=== PATIENT | female | born 1930 | race Caucasian/White ===

== ENCOUNTER 2017-05-26 15:10 | Inpatient (IN) ==
[2017-05-26 16:22] LABS: Basophils % 0.5 % (0.0-0.8); Eosinophils % 0.2 % (0.00-10.9); Hematocrit 26.8 VOL% (35.7-47.0); Hemoglobin 8.1 GM/DL (12.0-16.0); Immature Granulocytes % 0.4 %; Immature Granulocytes Absolute 0.03 #; Lymphocytes # 0.6 10*3/uL (1.4-4.0); Mean Corpuscular HGB Conc 30.2 GM/DL (32-36); Mean Corpuscular Hemoglobin 26 PG (27-34); Mean Corpuscular Volume 85.4 FL (87-102); Monocytes # 0.5 10*3/uL (0.11-0.8); Monocytes % 5.4 % (1.7-12.7); Neutrophils # 7.2 10*3/uL (1.4-7.4); Neutrophils % 86.5 % (38.7-73.9); Platelet Count 280 T/CUMM (130-400); Red Blood Count 3.14 MC/CUMM (3.8-5.5); Red Cell Distribution Width 13.5 % (9.3-17.3); White Blood Count 8.3 T/CUMM (4-12)
[2017-05-26 16:49] LABS: Alanine Aminotransferase 26 U/L (13-56); Albumin 3.3 G/DL (3.4-5.0); Alkaline Phosphatase 95 U/L (45-117); Aspartate Amino Transferase 38 U/L (0-37); Blood Urea Nitrogen 15 MG/DL (7-18); Calcium 8.4 MG/DL (8.5-10.1); Glucose 117 MG/DL (74-106); Osmolality,Calculated 276.7 MOS/KG (273-304); Potassium 3.4 MMOL/L (3.5-5.1); Sodium 138 MMOL/L (136-145); Total Protein 6.7 G/DL (6.4-8.3); Troponin I Only 0.036 NG/ML (0.00-0.045)
[2017-05-26 16:53] LABS: INR 1.1; PT Patient Result 11.6 SECS
[2017-05-26] MEDS ORDERED: ONDANSETRON 4 MG/2 ML VIAL IV PRN (21:12)
[2017-05-26] MEDS ORDERED: FUROSEMIDE 40 MG/4 ML VIAL IV STA (21:16)
[2017-05-27] MEDS: PANTOPRAZOLE 40 MG TABLET PO SCH ×2 (09:06→12:58)
[2017-05-27] MEDS: FUROSEMIDE 40 MG/4 ML VIAL IV SCH (09:07)
[2017-05-27] MEDS ORDERED: ONDANSETRON 4 MG TABLET PO PRN (09:08)
[2017-05-27] MEDS ORDERED: guaiFENesin 200 MG/10 ML UDCUP PO PRN (09:08)
[2017-05-27] MEDS ORDERED: [UNRECOGNIZED DRUG - OTHER] PO PRN (09:08)
[2017-05-27 09:29] LABS: Basophils # 0.1 10*3/uL (0.0-0.2); Basophils % 0.6 % (0.0-0.8); Eosinophils % 0.4 % (0.00-10.9); Hematocrit 26.9 VOL% (35.7-47.0); Hemoglobin 8.2 GM/DL (12.0-16.0); Immature Granulocytes % 0.4 %; Immature Granulocytes Absolute 0.03 #; Lymphocytes # 0.9 10*3/uL (1.4-4.0); Lymphocytes % 10.6 % (21.3-54.2); Mean Corpuscular HGB Conc 30.5 GM/DL (32-36); Mean Corpuscular Hemoglobin 26 PG (27-34); Mean Corpuscular Volume 83.5 FL (87-102); Monocytes # 0.5 10*3/uL (0.11-0.8); Monocytes % 6.5 % (1.7-12.7); Neutrophils # 6.6 10*3/uL (1.4-7.4); Neutrophils % 81.5 % (38.7-73.9); Platelet Count 284 T/CUMM (130-400); Red Blood Count 3.22 MC/CUMM (3.8-5.5); Red Cell Distribution Width 13.6 % (9.3-17.3); White Blood Count 8.1 T/CUMM (4-12)
[2017-05-27] MEDS ORDERED: POTASSIUM CHLORIDE 8 MEQ CAPSULE PO SCH (09:30)
[2017-05-27 09:59] LABS: Calcium 8.1 MG/DL (8.5-10.1); Osmolality,Calculated 272.2 MOS/KG (273-304); Potassium 3.5 MMOL/L (3.5-5.1)
[2017-05-27] MEDS ORDERED: GLUCAGON 1 MG VIAL IM PRN (10:28)
[2017-05-27] MEDS ORDERED: DEXTROSE 50% 25 GM/50 ML VIAL IV PRN (10:28)
[2017-05-27 10:33] LABS: Troponin I Only 0.042 NG/ML (0.00-0.045)
[2017-05-27 12:26] LABS: % Iron Saturation 5.6 % (18-50); Ferritin 17.8 ng/ml (8-252)
[2017-05-27] MEDS: LOSARTAN/HCTZ 50-12.5 MG TABLET PO SCH (12:56)
[2017-05-27] MEDS: AMIODARONE 200 MG TABLET PO SCH (12:57)
[2017-05-27] MEDS: ROSUVASTATIN 10 MG TABLET PO SCH (12:57)
[2017-05-27] MEDS: DONEPEZIL 10 MG TABLET PO SCH (12:57)
[2017-05-27] MEDS: ASPIRIN EC 81 MG TABLET PO SCH (12:57)
[2017-05-27] MEDS: LEVOFLOXACIN 500 MG TABLET PO SCH (12:57)
[2017-05-27] MEDS: MULTIVITAMIN (BEROCCA) TABLET PO SCH (12:57)
[2017-05-27] MEDS: NEBIVOLOL 5 MG TABLET PO SCH (12:57)
[2017-05-27] MEDS: ATORVASTATIN 20 MG TABLET PO SCH (12:57)
[2017-05-27] MEDS: LORATADINE 10 MG TABLET PO SCH (12:57)
[2017-05-27] MEDS: CLOTRIMAZOLE/BETAMETHASONE CREAM 15 GM TUBE TOP SCH ×2 (14:36→20:51)
[2017-05-27] MEDS: INSULIN LISPRO 100 UNIT/ML SUBCUT SCH ×3 (14:36→20:52)
[2017-05-27] MEDS: busPIRone 5 MG TABLET PO SCH ×2 (15:22→20:49)
[2017-05-27] MEDS: SPIRONOLACTONE 25 MG TABLET PO SCH (15:22)
[2017-05-27] MEDS: hydrOXYzine HCL 10 MG TABLET PO SCH ×2 (15:23→20:50)
[2017-05-27 16:25] LABS: Troponin I Only 0.046 NG/ML (0.00-0.045)
[2017-05-27] MEDS: SERTRALINE 100 MG TABLET PO SCH (20:49)
[2017-05-27] MEDS: ACETAMINOPHEN 325 MG TABLET PO PRN (20:56)
[2017-05-28 06:22] LABS: Basophils # 0.1 10*3/uL (0.0-0.2); Basophils % 0.7 % (0.0-0.8); Eosinophils # 0.1 10*3/uL (0.0-0.87); Eosinophils % 0.9 % (0.00-10.9); Hematocrit 25.1 VOL% (35.7-47.0); Hemoglobin 7.9 GM/DL (12.0-16.0); Immature Granulocytes % 0.4 %; Immature Granulocytes Absolute 0.03 #; Lymphocytes # 1.2 10*3/uL (1.4-4.0); Lymphocytes % 17.4 % (21.3-54.2); Mean Corpuscular HGB Conc 31.5 GM/DL (32-36); Mean Corpuscular Hemoglobin 26 PG (27-34); Mean Corpuscular Volume 83.4 FL (87-102); Monocytes # 0.7 10*3/uL (0.11-0.8); Monocytes % 9.6 % (1.7-12.7); Neutrophils # 4.9 10*3/uL (1.4-7.4); Platelet Count 243 T/CUMM (130-400); Red Blood Count 3.01 MC/CUMM (3.8-5.5); Red Cell Distribution Width 13.5 % (9.3-17.3)
[2017-05-28 06:53] LABS: Calcium 7.8 MG/DL (8.5-10.1); Osmolality,Calculated 276.8 MOS/KG (273-304); Potassium 3.4 MMOL/L (3.5-5.1)
[2017-05-28 06:55] LABS: Risk Ratio 2.67; VLDL CHOLESTEROL 18.2 MG/DL
[2017-05-28] MEDS: INSULIN LISPRO 100 UNIT/ML SUBCUT SCH ×4 (09:06→21:45)
[2017-05-28] MEDS: CLOTRIMAZOLE/BETAMETHASONE CREAM 15 GM TUBE TOP SCH ×2 (09:08→21:45)
[2017-05-28] MEDS: LOSARTAN/HCTZ 50-12.5 MG TABLET PO SCH (09:08)
[2017-05-28] MEDS: AMIODARONE 200 MG TABLET PO SCH (09:09)
[2017-05-28] MEDS: LORATADINE 10 MG TABLET PO SCH (09:09)
[2017-05-28] MEDS: DONEPEZIL 10 MG TABLET PO SCH (09:09)
[2017-05-28] MEDS: LEVOFLOXACIN 500 MG TABLET PO SCH (09:09)
[2017-05-28] MEDS: ROSUVASTATIN 10 MG TABLET PO SCH (09:09)
[2017-05-28] MEDS: PANTOPRAZOLE 40 MG TABLET PO SCH ×2 (09:09→13:05)
[2017-05-28] MEDS: NEBIVOLOL 5 MG TABLET PO SCH (09:09)
[2017-05-28] MEDS: busPIRone 5 MG TABLET PO SCH ×3 (09:09→21:44)
[2017-05-28] MEDS: ATORVASTATIN 20 MG TABLET PO SCH (09:09)
[2017-05-28] MEDS: MULTIVITAMIN (BEROCCA) TABLET PO SCH (09:09)
[2017-05-28] MEDS: ASPIRIN EC 81 MG TABLET PO SCH (09:09)
[2017-05-28] MEDS: SPIRONOLACTONE 25 MG TABLET PO SCH (09:10)
[2017-05-28] MEDS: hydrOXYzine HCL 10 MG TABLET PO SCH ×3 (09:14→21:44)
[2017-05-28] MEDS: FUROSEMIDE 40 MG/4 ML VIAL IV SCH (09:14)
[2017-05-28] MEDS ORDERED: SODIUM CHLORIDE 0.9% 1,000 ML IV PRN (09:25)
[2017-05-28] MEDS ORDERED: POTASSIUM CHLORIDE 20 MEQ TABLET PO ONE (10:59)
[2017-05-28] MEDS: ACETAMINOPHEN 325 MG TABLET PO PRN (14:44)
[2017-05-28] MEDS: SERTRALINE 100 MG TABLET PO SCH (21:44)
[2017-05-29 05:32] LABS: Basophils # 0.1 10*3/uL (0.0-0.2); Basophils % 0.5 % (0.0-0.8); Eosinophils # 0.1 10*3/uL (0.0-0.87); Eosinophils % 0.5 % (0.00-10.9); Hematocrit 33.1 VOL% (35.7-47.0); Hemoglobin 10.7 GM/DL (12.0-16.0); Immature Granulocytes % 0.3 %; Immature Granulocytes Absolute 0.03 #; Lymphocytes # 1.3 10*3/uL (1.4-4.0); Lymphocytes % 14.6 % (21.3-54.2); Mean Corpuscular HGB Conc 32.3 GM/DL (32-36); Mean Corpuscular Hemoglobin 27 PG (27-34); Mean Corpuscular Volume 82.1 FL (87-102); Mean Platelet Volume 10.1 FL (9.6-12.0); Monocytes # 0.9 10*3/uL (0.11-0.8); Monocytes % 9.4 % (1.7-12.7); Neutrophils # 6.8 10*3/uL (1.4-7.4); Neutrophils % 74.7 % (38.7-73.9); Platelet Count 277 T/CUMM (130-400); Red Blood Count 4.03 MC/CUMM (3.8-5.5); Red Cell Distribution Width 13.7 % (9.3-17.3); White Blood Count 9.1 T/CUMM (4-12)
[2017-05-29 05:49] LABS: Osmolality,Calculated 282.5 MOS/KG (273-304); Potassium 3.9 MMOL/L (3.5-5.1)
[2017-05-29] MEDS: INSULIN LISPRO 100 UNIT/ML SUBCUT SCH ×3 (09:35→17:57)
[2017-05-29] MEDS ORDERED: PROPOFOL 200 MG/20 ML VIAL IV ONE (11:45)
[2017-05-29] MEDS ORDERED: LIDOCAINE 2% 5 ML VIAL ONE (11:45)
[2017-05-29] MEDS: ATORVASTATIN 20 MG TABLET PO SCH (14:26)
[2017-05-29] MEDS: LEVOFLOXACIN 500 MG TABLET PO SCH (14:53)
[2017-05-29] MEDS: LOSARTAN/HCTZ 50-12.5 MG TABLET PO SCH (14:53)
[2017-05-29] MEDS: SPIRONOLACTONE 25 MG TABLET PO SCH (14:53)
[2017-05-29] MEDS: ROSUVASTATIN 10 MG TABLET PO SCH (14:53)
[2017-05-29] MEDS: DONEPEZIL 10 MG TABLET PO SCH (14:53)
[2017-05-29] MEDS: ASPIRIN EC 81 MG TABLET PO SCH (14:54)
[2017-05-29] MEDS: PANTOPRAZOLE 40 MG TABLET PO SCH ×2 (14:54→15:18)
[2017-05-29] MEDS: AMIODARONE 200 MG TABLET PO SCH (14:54)
[2017-05-29] MEDS: LORATADINE 10 MG TABLET PO SCH (14:54)
[2017-05-29] MEDS: MULTIVITAMIN (BEROCCA) TABLET PO SCH (14:54)
[2017-05-29] MEDS: busPIRone 5 MG TABLET PO SCH ×3 (14:54→21:13)
[2017-05-29] MEDS: FUROSEMIDE 40 MG/4 ML VIAL IV SCH (14:55)
[2017-05-29] MEDS: CLOTRIMAZOLE/BETAMETHASONE CREAM 15 GM TUBE TOP SCH ×2 (15:17→21:16)
[2017-05-29] MEDS: hydrOXYzine HCL 10 MG TABLET PO SCH ×3 (15:17→21:13)
[2017-05-29] MEDS ORDERED: POLYETHYLENE GLYCOL POWDER 255 GM BOTTLE PO ONE (18:00)
[2017-05-29] MEDS: SERTRALINE 100 MG TABLET PO SCH (21:14)
[2017-05-30] MEDS: INSULIN LISPRO 100 UNIT/ML SUBCUT SCH ×5 (01:38→20:58)
[2017-05-30 05:27] LABS: Basophils # 0.1 10*3/uL (0.0-0.2); Basophils % 0.7 % (0.0-0.8); Eosinophils # 0.1 10*3/uL (0.0-0.87); Eosinophils % 1.1 % (0.00-10.9); Immature Granulocytes % 0.3 %; Immature Granulocytes Absolute 0.03 #; Lymphocytes # 1.2 10*3/uL (1.4-4.0); Lymphocytes % 13.4 % (21.3-54.2); Mean Corpuscular HGB Conc 31.4 GM/DL (32-36); Mean Corpuscular Hemoglobin 26 PG (27-34); Mean Platelet Volume 9.9 FL (9.6-12.0); Monocytes # 0.9 10*3/uL (0.11-0.8); Neutrophils # 6.6 10*3/uL (1.4-7.4); Neutrophils % 74.5 % (38.7-73.9); Platelet Count 293 T/CUMM (130-400); Red Blood Count 4.27 MC/CUMM (3.8-5.5); Red Cell Distribution Width 13.8 % (9.3-17.3); White Blood Count 8.9 T/CUMM (4-12)
[2017-05-30 05:58] LABS: Calcium 8.2 MG/DL (8.5-10.1); Osmolality,Calculated 275.7 MOS/KG (273-304); Potassium 3.6 MMOL/L (3.5-5.1)
[2017-05-30] MEDS ORDERED: MAGNESIUM CITRATE 300 ML BOTTLE PO ONE (06:00)
[2017-05-30] MEDS: hydrOXYzine HCL 10 MG TABLET PO SCH ×3 (13:17→20:30)
[2017-05-30] MEDS: busPIRone 5 MG TABLET PO SCH ×3 (13:17→20:30)
[2017-05-30] MEDS ORDERED: LIDOCAINE 2% 5 ML VIAL ONE (15:06)
[2017-05-30] MEDS ORDERED: PROPOFOL 200 MG/20 ML VIAL IV ONE (15:06)
[2017-05-30] MEDS ORDERED: PHENYLEPHRINE 1 MG/10 ML SYRINGE IV ONE (15:06)
[2017-05-30] MEDS: ASPIRIN EC 81 MG TABLET PO SCH (17:16)
[2017-05-30] MEDS: LEVOFLOXACIN 500 MG TABLET PO SCH (17:16)
[2017-05-30] MEDS: PANTOPRAZOLE 40 MG TABLET PO SCH ×2 (17:16→17:23)
[2017-05-30] MEDS: AMIODARONE 200 MG TABLET PO SCH (17:17)
[2017-05-30] MEDS: ROSUVASTATIN 10 MG TABLET PO SCH (17:17)
[2017-05-30] MEDS: MULTIVITAMIN (BEROCCA) TABLET PO SCH (17:17)
[2017-05-30] MEDS: SPIRONOLACTONE 25 MG TABLET PO SCH (17:17)
[2017-05-30] MEDS: FUROSEMIDE 40 MG TABLET PO SCH (17:17)
[2017-05-30] MEDS: CLOTRIMAZOLE/BETAMETHASONE CREAM 15 GM TUBE TOP SCH ×2 (17:18→21:28)
[2017-05-30] MEDS: DONEPEZIL 10 MG TABLET PO SCH (17:18)
[2017-05-30] MEDS: LORATADINE 10 MG TABLET PO SCH (17:18)
[2017-05-30] MEDS: LOSARTAN/HCTZ 50-12.5 MG TABLET PO SCH (17:21)
[2017-05-30] MEDS: SERTRALINE 100 MG TABLET PO SCH (20:30)
[2017-05-31] MEDS: AMIODARONE 200 MG TABLET PO SCH (08:38)
[2017-05-31] MEDS: LORATADINE 10 MG TABLET PO SCH (08:39)
[2017-05-31] MEDS: ROSUVASTATIN 10 MG TABLET PO SCH (08:39)
[2017-05-31] MEDS: DONEPEZIL 10 MG TABLET PO SCH (08:39)
[2017-05-31] MEDS: MULTIVITAMIN (BEROCCA) TABLET PO SCH (08:39)
[2017-05-31] MEDS: hydrOXYzine HCL 10 MG TABLET PO SCH (08:39)
[2017-05-31] MEDS: LEVOFLOXACIN 500 MG TABLET PO SCH (08:39)
[2017-05-31] MEDS: FUROSEMIDE 40 MG TABLET PO SCH (08:39)
[2017-05-31] MEDS: PANTOPRAZOLE 40 MG TABLET PO SCH (08:39)
[2017-05-31] MEDS: LOSARTAN/HCTZ 50-12.5 MG TABLET PO SCH (08:39)
[2017-05-31] MEDS: INSULIN LISPRO 100 UNIT/ML SUBCUT SCH ×2 (08:39→12:37)
[2017-05-31] MEDS: ASPIRIN EC 81 MG TABLET PO SCH (08:39)
[2017-05-31] MEDS: SPIRONOLACTONE 25 MG TABLET PO SCH (08:39)
[2017-05-31] MEDS: busPIRone 5 MG TABLET PO SCH (08:39)
[2017-05-31] MEDS: CLOTRIMAZOLE/BETAMETHASONE CREAM 15 GM TUBE TOP SCH (08:40)
[2017-05-31 11:51] VITALS: BP 132/65
== END 2017-05-31 15:10 | disposition home or self-care (01) | DRG 293 ==
LOC: N.ED 15:10 → N.EDINP 21:12 → N.4E 22:36
PROVIDERS: ADMIT Internal Medicine; ATTEND Internal Medicine

== ENCOUNTER 2017-07-15 09:59 | Inpatient (IN) ==
[2017-07-15] MEDS ORDERED: ONDANSETRON 4 MG/2 ML VIAL IV PRN (10:09)
[2017-07-15] MEDS ORDERED: traMADol 50 MG TABLET PO PRN (10:09)
[2017-07-15] MEDS ORDERED: FUROSEMIDE 40 MG/4 ML VIAL IV PRN (10:12)
[2017-07-15] MEDS ORDERED: SODIUM CHLORIDE 0.9% 1,000 ML IV PRN (10:12)
[2017-07-15] MEDS ORDERED: DEXTROSE 50% 25 GM/50 ML VIAL IV PRN (12:15)
[2017-07-15] MEDS ORDERED: GLUCAGON 1 MG VIAL IM PRN (12:15)
[2017-07-15 12:27] LABS: % Iron Saturation 5.5 % (18-50); Ferritin 17.4 ng/ml (8-252)
[2017-07-15] MEDS: POTASSIUM CHLORIDE 20 MEQ TABLET PO PRN ×3 (12:27→20:01)
[2017-07-15] MEDS ORDERED: ONDANSETRON 4 MG TABLET PO PRN (14:32)
[2017-07-15] MEDS: SODIUM CHLORIDE 0.9% 1,000 ML IV SCH (15:50)
[2017-07-15] MEDS: ACETAMINOPHEN 325 MG TABLET PO PRN (20:02)
[2017-07-15] MEDS: DOCUSATE SODIUM 100 MG CAPSULE PO SCH (22:32)
[2017-07-15] MEDS: SERTRALINE 100 MG TABLET PO SCH (22:33)
[2017-07-16] MEDS: POTASSIUM CHLORIDE 20 MEQ TABLET PO PRN (02:13)
[2017-07-16 05:30] LABS: Basophils # 0.1 10*3/uL (0.0-0.2); Basophils % 0.8 % (0.0-0.8); Eosinophils # 0.1 10*3/uL (0.0-0.87); Eosinophils % 1.5 % (0.00-10.9); Hematocrit 29.9 VOL% (35.7-47.0); Hemoglobin 9.8 GM/DL (12.0-16.0); Immature Granulocytes % 0.3 %; Immature Granulocytes Absolute 0.02 #; Lymphocytes # 1.2 10*3/uL (1.4-4.0); Lymphocytes % 15.3 % (21.3-54.2); Mean Corpuscular HGB Conc 32.8 GM/DL (32-36); Mean Corpuscular Hemoglobin 27 PG (27-34); Mean Corpuscular Volume 83.1 FL (87-102); Mean Platelet Volume 10.8 FL (9.6-12.0); Monocytes # 0.6 10*3/uL (0.11-0.8); NRBC # 0.04 10*3/uL; Neutrophils # 5.6 10*3/uL (1.4-7.4); Neutrophils % 74.1 % (38.7-73.9); Platelet Count 185 T/CUMM (130-400); Red Cell Distribution Width 18.3 % (9.3-17.3); White Blood Count 7.5 T/CUMM (4-12)
[2017-07-16 06:00] LABS: Osmolality,Calculated 284.4 MOS/KG (273-304); Potassium 4.2 MMOL/L (3.5-5.1)
[2017-07-16] MEDS ORDERED: ROSUVASTATIN 10 MG TABLET PO SCH (09:00)
[2017-07-16] MEDS ORDERED: PANTOPRAZOLE 40 MG TABLET PO SCH (09:00)
[2017-07-16] MEDS: LOSARTAN/HCTZ 50-12.5 MG TABLET PO SCH (09:17)
[2017-07-16] MEDS: DONEPEZIL 10 MG TABLET PO SCH (09:17)
[2017-07-16] MEDS: ROSUVASTATIN 10 MG TABLET PO SCH (09:17)
[2017-07-16] MEDS: MULTIVITAMIN (CENTRUM) TABLET PO SCH (09:17)
[2017-07-16] MEDS: DOCUSATE SODIUM 100 MG CAPSULE PO SCH ×2 (09:18→20:48)
[2017-07-16] MEDS: AMIODARONE 200 MG TABLET PO SCH (09:18)
[2017-07-16] MEDS: busPIRone 5 MG TABLET PO SCH (09:18)
[2017-07-16] MEDS: PANTOPRAZOLE 40 MG TABLET PO SCH (09:18)
[2017-07-16] MEDS: FUROSEMIDE 40 MG TABLET PO SCH (09:28)
[2017-07-16] MEDS: POTASSIUM CHLORIDE 10 MEQ TABLET PO SCH (10:12)
[2017-07-16] MEDS ORDERED: DEXTROSE 50% 25 GM/50 ML VIAL IV PRN (10:33)
[2017-07-16] MEDS ORDERED: GLUCAGON 1 MG VIAL IM PRN (10:33)
[2017-07-16] MEDS: ACETAMINOPHEN 325 MG TABLET PO PRN (18:05)
[2017-07-16] MEDS: SERTRALINE 100 MG TABLET PO SCH (20:48)
[2017-07-16] MEDS: SODIUM CHLORIDE 0.9% 1,000 ML IV SCH (23:37)
[2017-07-17 05:13] LABS: Basophils # 0.1 10*3/uL (0.0-0.2); Basophils % 0.6 % (0.0-0.8); Eosinophils # 0.1 10*3/uL (0.0-0.87); Hematocrit 29.3 VOL% (35.7-47.0); Hemoglobin 9.5 GM/DL (12.0-16.0); Immature Granulocytes % 0.5 %; Immature Granulocytes Absolute 0.05 #; Lymphocytes # 0.9 10*3/uL (1.4-4.0); Lymphocytes % 9.2 % (21.3-54.2); Mean Corpuscular HGB Conc 32.4 GM/DL (32-36); Mean Corpuscular Hemoglobin 27 PG (27-34); Mean Corpuscular Volume 84.2 FL (87-102); Mean Platelet Volume 10.7 FL (9.6-12.0); Monocytes # 0.7 10*3/uL (0.11-0.8); Monocytes % 6.8 % (1.7-12.7); Neutrophils # 8.2 10*3/uL (1.4-7.4); Neutrophils % 81.9 % (38.7-73.9); Platelet Count 205 T/CUMM (130-400); Red Blood Count 3.48 MC/CUMM (3.8-5.5); Red Cell Distribution Width 18.5 % (9.3-17.3)
[2017-07-17 05:46] LABS: Calcium 7.7 MG/DL (8.5-10.1); Osmolality,Calculated 281.5 MOS/KG (273-304); Potassium 3.7 MMOL/L (3.5-5.1)
[2017-07-17] MEDS ORDERED: PROPOFOL 200 MG/20 ML VIAL IV ONE (13:05)
[2017-07-17] MEDS ORDERED: LIDOCAINE 1% 5 ML VIAL ONE (13:05)
[2017-07-17] MEDS: LOSARTAN/HCTZ 50-12.5 MG TABLET PO SCH (14:53)
[2017-07-17] MEDS: ROSUVASTATIN 10 MG TABLET PO SCH (14:53)
[2017-07-17] MEDS: DOCUSATE SODIUM 100 MG CAPSULE PO SCH ×2 (14:54→20:32)
[2017-07-17] MEDS: MULTIVITAMIN (CENTRUM) TABLET PO SCH (14:54)
[2017-07-17] MEDS: DONEPEZIL 10 MG TABLET PO SCH (14:54)
[2017-07-17] MEDS: AMIODARONE 200 MG TABLET PO SCH (14:55)
[2017-07-17] MEDS: busPIRone 5 MG TABLET PO SCH (14:55)
[2017-07-17] MEDS: FUROSEMIDE 40 MG TABLET PO SCH (14:56)
[2017-07-17] MEDS: POTASSIUM CHLORIDE 20 MEQ TABLET PO PRN (14:56)
[2017-07-17] MEDS: PANTOPRAZOLE 40 MG TABLET PO SCH (15:05)
[2017-07-17] MEDS: POTASSIUM CHLORIDE 10 MEQ TABLET PO SCH (15:11)
[2017-07-17] MEDS: SODIUM CHLORIDE 0.9% 1,000 ML IV SCH (18:19)
[2017-07-17] MEDS: SERTRALINE 100 MG TABLET PO SCH (20:32)
[2017-07-18 06:19] LABS: Basophils # 0.1 10*3/uL (0.0-0.2); Basophils % 0.7 % (0.0-0.8); Eosinophils # 0.2 10*3/uL (0.0-0.87); Eosinophils % 1.5 % (0.00-10.9); Hematocrit 30.5 VOL% (35.7-47.0); Hemoglobin 9.4 GM/DL (12.0-16.0); Immature Granulocytes % 0.5 %; Immature Granulocytes Absolute 0.05 #; Lymphocytes # 1.3 10*3/uL (1.4-4.0); Lymphocytes % 13.3 % (21.3-54.2); Mean Corpuscular HGB Conc 30.8 GM/DL (32-36); Mean Corpuscular Hemoglobin 27 PG (27-34); Mean Corpuscular Volume 86.9 FL (87-102); Mean Platelet Volume 10.8 FL (9.6-12.0); Monocytes # 0.8 10*3/uL (0.11-0.8); Monocytes % 7.9 % (1.7-12.7); Neutrophils # 7.6 10*3/uL (1.4-7.4); Neutrophils % 76.1 % (38.7-73.9); Platelet Count 197 T/CUMM (130-400); Red Blood Count 3.51 MC/CUMM (3.8-5.5); Red Cell Distribution Width 18.8 % (9.3-17.3)
[2017-07-18 07:41] LABS: Calcium 8.3 MG/DL (8.5-10.1); Osmolality,Calculated 286.1 MOS/KG (273-304); Potassium 4.1 MMOL/L (3.5-5.1)
[2017-07-18 08:38] VITALS: BP 155/64
[2017-07-18] MEDS: DONEPEZIL 10 MG TABLET PO SCH (08:50)
[2017-07-18] MEDS: LOSARTAN/HCTZ 50-12.5 MG TABLET PO SCH (08:50)
[2017-07-18] MEDS: MULTIVITAMIN (CENTRUM) TABLET PO SCH (08:50)
[2017-07-18] MEDS: POTASSIUM CHLORIDE 10 MEQ TABLET PO SCH (08:51)
[2017-07-18] MEDS: ROSUVASTATIN 10 MG TABLET PO SCH (08:51)
[2017-07-18] MEDS: DOCUSATE SODIUM 100 MG CAPSULE PO SCH (08:51)
[2017-07-18] MEDS: AMIODARONE 200 MG TABLET PO SCH (08:51)
[2017-07-18] MEDS: busPIRone 5 MG TABLET PO SCH (08:51)
[2017-07-18] MEDS: PANTOPRAZOLE 40 MG TABLET PO SCH (08:51)
[2017-07-18] MEDS: FUROSEMIDE 40 MG TABLET PO SCH (08:52)
== END 2017-07-18 11:35 | disposition home health service (06) | DRG 379 ==
LOC: PREOBSVTOIN 10:08 → N.4E 10:23
PROVIDERS: ADMIT Internal Medicine; ATTEND Internal Medicine

== ENCOUNTER 2017-08-31 21:28 | Inpatient (IN) ==
[2017-08-31 23:27] LABS: Basophils % 0.3 % (0.0-0.8); Hematocrit 28.1 VOL% (35.7-47.0); Hemoglobin 9.1 GM/DL (12.0-16.0); Immature Granulocytes % 0.6 %; Immature Granulocytes Absolute 0.07 #; Lymphocytes # 0.7 10*3/uL (1.4-4.0); Lymphocytes % 6.6 % (21.3-54.2); Mean Corpuscular HGB Conc 32.4 GM/DL (32-36); Mean Corpuscular Hemoglobin 28 PG (27-34); Mean Corpuscular Volume 87.5 FL (87-102); Mean Platelet Volume 9.9 FL (9.6-12.0); Monocytes # 0.7 10*3/uL (0.11-0.8); Monocytes % 6.3 % (1.7-12.7); Neutrophils # 9.5 10*3/uL (1.4-7.4); Neutrophils % 86.2 % (38.7-73.9); Platelet Count 179 T/CUMM (130-400); Red Blood Count 3.21 MC/CUMM (3.8-5.5); Red Cell Distribution Width 17.3 % (9.3-17.3)
[2017-08-31 23:34] LABS: Apearance,Urine CLEAR (Clear); Bilirubin,Urine Negative (Negative); Blood, Urine Negative (Negative); Glucose,Urine (UA) Negative (Negative); Hyaline Casts,Urine 18 /LPF (0-3); Ketones,Urine Negative (Negative); Mucus,Urine Occasional /LPF (Occasional); Nitrite,Urine Negative (Negative); Protein,Urine Negative; RBC,Urine 1 /HPF (0-4); Urine Color Yellow (Yellow); Urine Specific Gravity 1.009 (1.001-1.035); Urine Urobilinogen < 2.0 EU/DL (0.2-1.0)
[2017-08-31 23:36] LABS: INR 1.1; PT Patient Result 11.9 SECS
[2017-08-31 23:52] LABS: Albumin 3.5 G/DL (3.4-5.0); Bilirubin,Total 0.9 MG/DL (0.2-1.0); Calcium 8.4 MG/DL (8.5-10.1); Osmolality,Calculated 282.4 MOS/KG (273-304); Potassium 3.5 MMOL/L (3.5-5.1); Total Protein 6.3 G/DL (6.4-8.3)
[2017-09-01] MEDS ORDERED: SODIUM CHLORIDE 0.9% 500 ML IV STA (00:56)
[2017-09-01] MEDS ORDERED: ONDANSETRON 4 MG/2 ML VIAL IM STA ×2 (00:57→00:58)
[2017-09-01] MEDS ORDERED: HYDROmorphone 2 MG/1 ML VIAL IV STA ×2 (00:57→00:58)
[2017-09-01] MEDS ORDERED: ONDANSETRON 4 MG/2 ML VIAL IV STA (01:08)
[2017-09-01] MEDS ORDERED: ONDANSETRON 4 MG/2 ML VIAL ONE (01:12)
[2017-09-01] MEDS ORDERED: HYDROmorphone 2 MG/1 ML VIAL ONE (01:13)
[2017-09-01] MEDS ORDERED: HYDROmorphone 2 MG/1 ML VIAL IV PRN (05:45)
[2017-09-01] MEDS ORDERED: ONDANSETRON 4 MG/2 ML VIAL IV PRN (05:45)
[2017-09-01] MEDS: SODIUM CHLORIDE 0.9% 1,000 ML IV SCH ×3 (06:05→21:21)
[2017-09-01 09:42] LABS: Basophils % 0.3 % (0.0-0.8); Eosinophils % 0.1 % (0.00-10.9); Hematocrit 26.3 VOL% (35.7-47.0); Hemoglobin 8.4 GM/DL (12.0-16.0); Immature Granulocytes % 0.5 %; Immature Granulocytes Absolute 0.04 #; Lymphocytes # 0.5 10*3/uL (1.4-4.0); Lymphocytes % 6.1 % (21.3-54.2); Mean Corpuscular HGB Conc 31.9 GM/DL (32-36); Mean Corpuscular Hemoglobin 28 PG (27-34); Mean Corpuscular Volume 88.3 FL (87-102); Mean Platelet Volume 10.3 FL (9.6-12.0); Monocytes # 0.7 10*3/uL (0.11-0.8); Monocytes % 7.5 % (1.7-12.7); Neutrophils # 7.5 10*3/uL (1.4-7.4); Neutrophils % 85.5 % (38.7-73.9); Platelet Count 169 T/CUMM (130-400); Red Blood Count 2.98 MC/CUMM (3.8-5.5); Red Cell Distribution Width 17.9 % (9.3-17.3); White Blood Count 8.7 T/CUMM (4-12)
[2017-09-01] MEDS: DONEPEZIL 10 MG TABLET PO SCH (10:00)
[2017-09-01] MEDS: AMIODARONE 200 MG TABLET PO SCH (10:00)
[2017-09-01] MEDS: ROSUVASTATIN 10 MG TABLET PO SCH (10:00)
[2017-09-01] MEDS: LOSARTAN 50 MG TABLET PO SCH (10:01)
[2017-09-01] MEDS: busPIRone 10 MG TABLET PO SCH (10:01)
[2017-09-01] MEDS: POTASSIUM CHLORIDE 10 MEQ TABLET PO SCH (10:01)
[2017-09-01] MEDS: FERROUS SULFATE 325 MG TABLET PO SCH ×2 (10:01→21:13)
[2017-09-01] MEDS: PANTOPRAZOLE 40 MG TABLET PO SCH (10:01)
[2017-09-01] MEDS: FUROSEMIDE 40 MG TABLET PO SCH ×2 (10:01→21:13)
[2017-09-01] MEDS: hydrOXYzine HCL 10 MG TABLET PO SCH ×2 (10:01→21:13)
[2017-09-01] MEDS: LIDOCAINE 5% PATCH TRANSDERM SCH (10:01)
[2017-09-01 10:05] LABS: Osmolality,Calculated 285.3 MOS/KG (273-304); Potassium 3.7 MMOL/L (3.5-5.1)
[2017-09-01] MEDS: ENOXAPARIN 40 MG/0.4 ML SYRINGE SUBCUT SCH (15:38)
[2017-09-01] MEDS: SERTRALINE 100 MG TABLET PO SCH (21:13)
[2017-09-01] MEDS: HYDROmorphone 2 MG/1 ML VIAL IV PRN (21:13)
[2017-09-02] MEDS: HYDROmorphone 2 MG/1 ML VIAL IV PRN ×4 (03:52→22:12)
[2017-09-02 06:14] LABS: Basophils % 0.5 % (0.0-0.8); Eosinophils # 0.1 10*3/uL (0.0-0.87); Eosinophils % 0.8 % (0.00-10.9); Hematocrit 27.7 VOL% (35.7-47.0); Hemoglobin 8.6 GM/DL (12.0-16.0); Immature Granulocytes % 0.6 %; Immature Granulocytes Absolute 0.05 #; Lymphocytes # 0.7 10*3/uL (1.4-4.0); Lymphocytes % 8.1 % (21.3-54.2); Mean Corpuscular Hemoglobin 28 PG (27-34); Mean Corpuscular Volume 89.9 FL (87-102); Mean Platelet Volume 10.2 FL (9.6-12.0); Monocytes # 0.7 10*3/uL (0.11-0.8); Monocytes % 8.2 % (1.7-12.7); Neutrophils # 7.2 10*3/uL (1.4-7.4); Neutrophils % 81.8 % (38.7-73.9); Platelet Count 168 T/CUMM (130-400); Red Blood Count 3.08 MC/CUMM (3.8-5.5); White Blood Count 8.8 T/CUMM (4-12)
[2017-09-02 06:41] LABS: Calcium 7.6 MG/DL (8.5-10.1); Potassium 3.6 MMOL/L (3.5-5.1)
[2017-09-02] MEDS: busPIRone 10 MG TABLET PO SCH (09:18)
[2017-09-02] MEDS: MULTIVITAMIN (BEROCCA) TABLET PO SCH (09:18)
[2017-09-02] MEDS: FUROSEMIDE 40 MG TABLET PO SCH ×2 (09:18→21:21)
[2017-09-02] MEDS: LOSARTAN 50 MG TABLET PO SCH (09:18)
[2017-09-02] MEDS: POTASSIUM CHLORIDE 10 MEQ TABLET PO SCH (09:18)
[2017-09-02] MEDS: FERROUS SULFATE 325 MG TABLET PO SCH ×2 (09:18→21:21)
[2017-09-02] MEDS: DONEPEZIL 10 MG TABLET PO SCH (09:18)
[2017-09-02] MEDS: ROSUVASTATIN 10 MG TABLET PO SCH (09:18)
[2017-09-02] MEDS: PANTOPRAZOLE 40 MG TABLET PO SCH (09:19)
[2017-09-02] MEDS: hydrOXYzine HCL 10 MG TABLET PO SCH ×2 (09:19→21:21)
[2017-09-02] MEDS: AMIODARONE 200 MG TABLET PO SCH (09:19)
[2017-09-02] MEDS: LIDOCAINE 5% PATCH TRANSDERM SCH (09:29)
[2017-09-02] MEDS: SODIUM CHLORIDE 0.9% 1,000 ML IV SCH (12:13)
[2017-09-02] MEDS: ENOXAPARIN 40 MG/0.4 ML SYRINGE SUBCUT SCH (13:29)
[2017-09-02] MEDS: SERTRALINE 100 MG TABLET PO SCH (21:21)
[2017-09-03] MEDS: HYDROmorphone 2 MG/1 ML VIAL IV PRN (06:44)
[2017-09-03] MEDS: LIDOCAINE 5% PATCH TRANSDERM SCH (07:26)
[2017-09-03] MEDS: LOSARTAN 50 MG TABLET PO SCH (10:17)
[2017-09-03] MEDS: hydrOXYzine HCL 10 MG TABLET PO SCH ×2 (10:17→21:03)
[2017-09-03] MEDS: AMIODARONE 200 MG TABLET PO SCH (10:17)
[2017-09-03] MEDS: ROSUVASTATIN 10 MG TABLET PO SCH (10:17)
[2017-09-03] MEDS: DONEPEZIL 10 MG TABLET PO SCH (10:17)
[2017-09-03] MEDS: MULTIVITAMIN (BEROCCA) TABLET PO SCH (10:17)
[2017-09-03] MEDS: busPIRone 10 MG TABLET PO SCH (10:17)
[2017-09-03] MEDS: POTASSIUM CHLORIDE 10 MEQ TABLET PO SCH (10:18)
[2017-09-03] MEDS: FERROUS SULFATE 325 MG TABLET PO SCH ×2 (10:18→21:03)
[2017-09-03] MEDS: PANTOPRAZOLE 40 MG TABLET PO SCH (10:18)
[2017-09-03] MEDS: FUROSEMIDE 40 MG TABLET PO SCH ×2 (10:18→21:03)
[2017-09-03] MEDS: ENOXAPARIN 40 MG/0.4 ML SYRINGE SUBCUT SCH (14:49)
[2017-09-03] MEDS: SERTRALINE 100 MG TABLET PO SCH (21:03)
[2017-09-04] MEDS: hydrOXYzine HCL 10 MG TABLET PO SCH (09:22)
[2017-09-04] MEDS: FERROUS SULFATE 325 MG TABLET PO SCH (09:22)
[2017-09-04] MEDS: MULTIVITAMIN (BEROCCA) TABLET PO SCH (09:22)
[2017-09-04] MEDS: LOSARTAN 50 MG TABLET PO SCH (09:22)
[2017-09-04] MEDS: AMIODARONE 200 MG TABLET PO SCH (09:22)
[2017-09-04] MEDS: ROSUVASTATIN 10 MG TABLET PO SCH (09:22)
[2017-09-04] MEDS: busPIRone 10 MG TABLET PO SCH (09:22)
[2017-09-04] MEDS: DONEPEZIL 10 MG TABLET PO SCH (09:22)
[2017-09-04] MEDS: POTASSIUM CHLORIDE 10 MEQ TABLET PO SCH (09:23)
[2017-09-04] MEDS: LIDOCAINE 5% PATCH TRANSDERM SCH (09:23)
[2017-09-04] MEDS: FUROSEMIDE 40 MG TABLET PO SCH (09:23)
[2017-09-04] MEDS: PANTOPRAZOLE 40 MG TABLET PO SCH (09:23)
[2017-09-04 12:38] VITALS: BP 128/80
== END 2017-09-04 12:43 | disposition swing bed (61) | DRG 184 ==
LOC: EDBD → EDUNIT# → N.ED 21:28 → N.EDINP 09-01 03:39 → N.3E 09-01 04:25
PROVIDERS: ADMIT Internal Medicine; ATTEND Internal Medicine

== ENCOUNTER 2017-11-12 15:38 | Inpatient (IN) ==
[2017-11-18 07:23] VITALS: BP 142/52
== END 2017-11-18 10:20 | disposition swing bed (61) | DRG 378 ==
LOC: N.CC 16:55 → N.2E 11-13 13:30
PROVIDERS: ADMIT Internal Medicine; ATTEND Internal Medicine

== ENCOUNTER 2017-11-24 10:58 | Inpatient (IN) ==
[2017-11-24] MEDS ORDERED: SODIUM CHLORIDE 0.9% 1,000 ML IV STA (11:35)
[2017-11-24 11:50] LABS: Basophils % 0.2 % (0.0-0.8); Eosinophils # 0.1 10*3/uL (0.0-0.87); Eosinophils % 0.7 % (0.00-10.9); Hematocrit 32.9 VOL% (35.7-47.0); Hemoglobin 10.4 GM/DL (12.0-16.0); Immature Granulocytes % 0.9 %; Immature Granulocytes Absolute 0.12 #; Lymphocytes # 0.9 10*3/uL (1.4-4.0); Lymphocytes % 6.3 % (21.3-54.2); Mean Corpuscular HGB Conc 31.6 GM/DL (32-36); Mean Corpuscular Hemoglobin 31 PG (27-34); Mean Corpuscular Volume 96.8 FL (87-102); Mean Platelet Volume 11.2 FL (9.6-12.0); Monocytes # 0.7 10*3/uL (0.11-0.8); Monocytes % 4.9 % (1.7-12.7); Neutrophils # 11.8 10*3/uL (1.4-7.4); Platelet Count 163 T/CUMM (130-400); Red Cell Distribution Width 16.4 % (9.3-17.3); White Blood Count 13.6 T/CUMM (4-12)
[2017-11-24 12:01] LABS: INR 1.3; Partial Thromboplastin Time 29.7 SECS (0-40)
[2017-11-24 12:10] LABS: Ammonia 77 UMOL/L (11-32)
[2017-11-24 12:13] LABS: Alanine Aminotransferase 88 U/L (13-56); Alkaline Phosphatase 162 U/L (45-117); Aspartate Amino Transferase 157 U/L (0-37); Blood Urea Nitrogen 34 MG/DL (7-18); Calcium 7.7 MG/DL (8.5-10.1); Glucose 220 MG/DL (74-106); Osmolality,Calculated 300.8 MOS/KG (273-304); Potassium 3.9 MMOL/L (3.5-5.1); Sodium 144 MMOL/L (136-145); Total Protein 5.6 G/DL (6.4-8.3)
[2017-11-24 12:22] LABS: Barbiturates Screen,Urine Negative (Negative); Benzodiazepines Screen,Urine Negative (Negative); Cannabinoid Screen,Urine Negative (Negative); Opiate Screen,Urine Negative (Negative); Phencyclidine Screen,Urine Negative (Negative)
[2017-11-24] MEDS ORDERED: LEVOFLOXACIN INJ 500 MG in PREMIX 1 EACH IV STA (12:25)
[2017-11-24 12:26] LABS: Apearance,Urine Slightly Hazy (Clear); Bilirubin,Urine Negative (Negative); Blood, Urine Negative (Negative); Glucose,Urine (UA) Negative (Negative); Hyaline Casts,Urine 11 /LPF (0-3); Ketones,Urine Negative (Negative); Mucus,Urine Occasional /LPF (Occasional); Nitrite,Urine Negative (Negative); Protein,Urine Negative; RBC,Urine 1 /HPF (0-4); Squamous Epithelial Cell,Urine Occasional /HPF (0-10); Urine Color Amber (Yellow); Urine Specific Gravity 1.012 (1.001-1.035); Urine Urobilinogen < 2.0 EU/DL (0.2-1.0); WBC,Urine 1 /HPF (0-6)
[2017-11-24 16:28] LABS: Lactic Acid 2.3 MMOL/L (0.4-2.0)
[2017-11-24] MEDS: SODIUM CHLORIDE 0.9% 1,000 ML IV SCH (18:00)
[2017-11-24] MEDS: SERTRALINE 100 MG TABLET PO SCH (21:04)
[2017-11-24] MEDS: ROSUVASTATIN 10 MG TABLET PO SCH (21:04)
[2017-11-24] MEDS: POTASSIUM CHLORIDE 10 MEQ TABLET PO SCH (21:04)
[2017-11-24] MEDS: DOCUSATE SODIUM 100 MG CAPSULE PO SCH (21:04)
[2017-11-25] MEDS: SODIUM CHLORIDE 0.9% 1,000 ML IV SCH ×3 (04:19→15:53)
[2017-11-25 06:59] LABS: Basophils % 0.4 % (0.0-0.8); Eosinophils # 0.1 10*3/uL (0.0-0.87); Eosinophils % 1.2 % (0.00-10.9); Hematocrit 30.1 VOL% (35.7-47.0); Hemoglobin 9.4 GM/DL (12.0-16.0); Immature Granulocytes % 0.5 %; Immature Granulocytes Absolute 0.06 #; Lymphocytes % 9.1 % (21.3-54.2); Mean Corpuscular HGB Conc 31.2 GM/DL (32-36); Mean Corpuscular Hemoglobin 30 PG (27-34); Mean Corpuscular Volume 97.1 FL (87-102); Mean Platelet Volume 11.2 FL (9.6-12.0); Monocytes # 0.7 10*3/uL (0.11-0.8); Monocytes % 5.8 % (1.7-12.7); Neutrophils # 9.4 10*3/uL (1.4-7.4); Platelet Count 155 T/CUMM (130-400); Red Cell Distribution Width 16.5 % (9.3-17.3); White Blood Count 11.3 T/CUMM (4-12)
[2017-11-25 07:26] LABS: Calcium 6.5 MG/DL (8.5-10.1); Osmolality,Calculated 299.3 MOS/KG (273-304); Potassium 3.4 MMOL/L (3.5-5.1)
[2017-11-25] MEDS: ACETAMINOPHEN 325 MG TABLET PO PRN ×2 (07:38→13:45)
[2017-11-25] MEDS ORDERED: AMIODARONE 200 MG TABLET PO SCH (09:00)
[2017-11-25] MEDS: PANTOPRAZOLE 40 MG TABLET PO SCH (10:23)
[2017-11-25] MEDS: LOSARTAN 50 MG TABLET PO SCH (10:23)
[2017-11-25] MEDS: DOCUSATE SODIUM 100 MG CAPSULE PO SCH ×2 (10:23→22:15)
[2017-11-25] MEDS: POTASSIUM CHLORIDE 10 MEQ TABLET PO SCH ×2 (10:23→22:15)
[2017-11-25] MEDS: LEVOFLOXACIN INJ 250 MG in PREMIX 1 EACH IV SCH (11:43)
[2017-11-25] MEDS ORDERED: LACTULOSE 20 GM/30 ML UDCUP PO PRN (14:02)
[2017-11-25 15:53] LABS: Hepatitis A Ab IgM Quant 0.17 Index; Hepatitis A Ab IgM Result Negative (Negative); Hepatitis B Core IgM Quant 0.17 Index; Hepatitis B Core IgM Result Negative (Negative); Hepatitis B Surface Ag Result Negative (Negative); Hepatitis C Virus Ab Result Negative (Negative)
[2017-11-25] MEDS: traMADol 50 MG TABLET PO PRN (17:30)
[2017-11-25] MEDS: ROSUVASTATIN 10 MG TABLET PO SCH (22:15)
[2017-11-25] MEDS: SERTRALINE 100 MG TABLET PO SCH (22:15)
[2017-11-25] MEDS: ZINC OXIDE PASTE 113 GM TUBE TOP SCH (22:15)
[2017-11-26] MEDS: traMADol 50 MG TABLET PO PRN ×2 (00:44→22:24)
[2017-11-26] MEDS: SODIUM CHLORIDE 0.9% 1,000 ML IV SCH ×2 (03:50→14:29)
[2017-11-26 09:52] LABS: Basophils % 0.3 % (0.0-0.8); Eosinophils # 0.1 10*3/uL (0.0-0.87); Eosinophils % 0.9 % (0.00-10.9); Hematocrit 33.1 VOL% (35.7-47.0); Hemoglobin 10.6 GM/DL (12.0-16.0); Immature Granulocytes % 0.4 %; Immature Granulocytes Absolute 0.05 #; Lymphocytes # 1.2 10*3/uL (1.4-4.0); Mean Corpuscular Hemoglobin 31 PG (27-34); Mean Corpuscular Volume 96.2 FL (87-102); Mean Platelet Volume 11.6 FL (9.6-12.0); Monocytes # 0.7 10*3/uL (0.11-0.8); Monocytes % 5.2 % (1.7-12.7); Neutrophils # 10.8 10*3/uL (1.4-7.4); Neutrophils % 84.2 % (38.7-73.9); Platelet Count 148 T/CUMM (130-400); Red Blood Count 3.44 MC/CUMM (3.8-5.5); Red Cell Distribution Width 16.8 % (9.3-17.3); White Blood Count 12.8 T/CUMM (4-12)
[2017-11-26] MEDS: DOCUSATE SODIUM 100 MG CAPSULE PO SCH ×2 (10:06→22:20)
[2017-11-26] MEDS: LOSARTAN 50 MG TABLET PO SCH (10:06)
[2017-11-26] MEDS: POTASSIUM CHLORIDE 10 MEQ TABLET PO SCH (10:07)
[2017-11-26] MEDS: PANTOPRAZOLE 40 MG TABLET PO SCH (10:07)
[2017-11-26 10:30] LABS: Albumin 1.7 G/DL (3.4-5.0); Albumin 1.8 G/DL (3.4-5.0); Bilirubin,Direct 0.43 MG/DL (0.0-0.20); Bilirubin,Indirect 0.5 MG/DL (0.0-1.0); Bilirubin,Total 0.9 MG/DL (0.2-1.0); Calcium 7.6 MG/DL (8.5-10.1); Total Protein 5.3 G/DL (6.4-8.3)
[2017-11-26 10:31] LABS: Osmolality,Calculated 293.7 MOS/KG (273-304); Potassium 4.5 MMOL/L (3.5-5.1)
[2017-11-26 13:51] LABS: Neutrophils,Peritoneal Fluid 24 %; RBC,Peritoneal Fluid 1228 T/CUMM
[2017-11-26] MEDS: LEVOFLOXACIN INJ 250 MG in PREMIX 1 EACH IV SCH (14:28)
[2017-11-26] MEDS: ZINC OXIDE PASTE 113 GM TUBE TOP SCH ×2 (14:30→22:20)
[2017-11-26] MEDS: SERTRALINE 100 MG TABLET PO SCH (22:20)
[2017-11-26] MEDS: ONDANSETRON 4 MG/2 ML VIAL IV PRN (22:25)
[2017-11-27] MEDS: SODIUM CHLORIDE 0.9% 1,000 ML IV SCH ×2 (01:46→12:14)
[2017-11-27] MEDS: LACTULOSE 20 GM/30 ML UDCUP PO SCH ×4 (08:29→22:08)
[2017-11-27] MEDS: SPIRONOLACTONE 50 MG TABLET PO SCH (08:29)
[2017-11-27] MEDS: LOSARTAN 50 MG TABLET PO SCH (08:29)
[2017-11-27] MEDS: FUROSEMIDE 20 MG TABLET PO SCH (08:30)
[2017-11-27] MEDS: PANTOPRAZOLE 40 MG TABLET PO SCH (08:30)
[2017-11-27] MEDS: ACETAMINOPHEN 325 MG TABLET PO PRN (08:33)
[2017-11-27] MEDS: DOCUSATE SODIUM 100 MG CAPSULE PO SCH ×2 (08:34→22:09)
[2017-11-27 08:50] LABS: Hematocrit 33.8 VOL% (35.7-47.0); Hemoglobin 10.8 GM/DL (12.0-16.0)
[2017-11-27] MEDS: ONDANSETRON 4 MG/2 ML VIAL IV PRN (09:02)
[2017-11-27] MEDS: ZINC OXIDE PASTE 113 GM TUBE TOP SCH ×2 (12:09→22:08)
[2017-11-27] MEDS: LEVOFLOXACIN INJ 250 MG in PREMIX 1 EACH IV SCH (12:13)
[2017-11-27 15:06] LABS: Mitochondrial Antibody (M2) <0.1 U
[2017-11-27] MEDS: ALPRAZolam 0.25 MG TABLET PO PRN (18:32)
[2017-11-27] MEDS: SERTRALINE 100 MG TABLET PO SCH (22:08)
[2017-11-27] MEDS: traMADol 50 MG TABLET PO PRN (22:46)
[2017-11-28] MEDS: LACTULOSE 20 GM/30 ML UDCUP PO SCH ×4 (01:40→22:00)
[2017-11-28] MEDS: SODIUM CHLORIDE 0.9% 1,000 ML IV SCH (07:08)
[2017-11-28 07:48] LABS: Calcium 7.3 MG/DL (8.5-10.1); Osmolality,Calculated 303.1 MOS/KG (273-304); Potassium 4.3 MMOL/L (3.5-5.1)
[2017-11-28 08:12] LABS: Basophils # 0.1 10*3/uL (0.0-0.2); Basophils % 0.4 % (0.0-0.8); Eosinophils # 0.1 10*3/uL (0.0-0.87); Hematocrit 34.5 VOL% (35.7-47.0); Hemoglobin 10.9 GM/DL (12.0-16.0); Immature Granulocytes % 0.5 %; Immature Granulocytes Absolute 0.07 #; Lymphocytes # 1.2 10*3/uL (1.4-4.0); Lymphocytes % 9.3 % (21.3-54.2); Mean Corpuscular HGB Conc 31.6 GM/DL (32-36); Mean Corpuscular Hemoglobin 30 PG (27-34); Mean Corpuscular Volume 95.8 FL (87-102); Mean Platelet Volume 11.3 FL (9.6-12.0); Monocytes # 0.6 10*3/uL (0.11-0.8); Monocytes % 4.3 % (1.7-12.7); Neutrophils # 11.3 10*3/uL (1.4-7.4); Neutrophils % 84.5 % (38.7-73.9); Platelet Count 159 T/CUMM (130-400); Red Cell Distribution Width 17.1 % (9.3-17.3); White Blood Count 13.3 T/CUMM (4-12)
[2017-11-28] MEDS: ZINC OXIDE PASTE 113 GM TUBE TOP SCH ×3 (08:34→21:42)
[2017-11-28] MEDS: LOSARTAN 50 MG TABLET PO SCH (10:14)
[2017-11-28] MEDS: DOCUSATE SODIUM 100 MG CAPSULE PO SCH ×2 (10:14→21:45)
[2017-11-28] MEDS: SPIRONOLACTONE 50 MG TABLET PO SCH (10:14)
[2017-11-28] MEDS: FUROSEMIDE 20 MG TABLET PO SCH (10:14)
[2017-11-28] MEDS: PANTOPRAZOLE 40 MG TABLET PO SCH (10:14)
[2017-11-28] MEDS: LEVOFLOXACIN INJ 250 MG in PREMIX 1 EACH IV SCH (11:03)
[2017-11-28 11:38] LABS: Smooth Muscle Antibody Negative (Negative)
[2017-11-28] MEDS ORDERED: TUBERCULIN SKIN TEST 0.1 ML SYRINGE INTRADERM ONE (17:00)
[2017-11-28 21:29] LABS: Neutrophils,Peritoneal Fluid 3 %
[2017-11-28 21:30] LABS: RBC,Peritoneal Fluid < 1 T/CUMM
[2017-11-28] MEDS: traMADol 50 MG TABLET PO PRN (21:41)
[2017-11-28] MEDS: SERTRALINE 100 MG TABLET PO SCH (21:41)
[2017-11-28] MEDS: ALPRAZolam 0.25 MG TABLET PO PRN (22:47)
[2017-11-29] MEDS: LACTULOSE 20 GM/30 ML UDCUP PO SCH ×4 (03:55→21:37)
[2017-11-29] MEDS: SPIRONOLACTONE 50 MG TABLET PO SCH (08:42)
[2017-11-29] MEDS: LEVOFLOXACIN 250 MG TABLET PO SCH (08:43)
[2017-11-29] MEDS: PANTOPRAZOLE 40 MG TABLET PO SCH (08:43)
[2017-11-29] MEDS: DOCUSATE SODIUM 100 MG CAPSULE PO SCH ×2 (08:43→21:37)
[2017-11-29] MEDS: LOSARTAN 50 MG TABLET PO SCH (08:43)
[2017-11-29] MEDS: FUROSEMIDE 20 MG TABLET PO SCH (08:43)
[2017-11-29] MEDS: ZINC OXIDE PASTE 113 GM TUBE TOP SCH ×2 (08:48→21:37)
[2017-11-29 11:34] LABS: Basophils # 0.1 10*3/uL (0.0-0.2); Basophils % 0.3 % (0.0-0.8); Eosinophils # 0.1 10*3/uL (0.0-0.87); Eosinophils % 0.5 % (0.00-10.9); Hematocrit 34.7 VOL% (35.7-47.0); Hemoglobin 10.9 GM/DL (12.0-16.0); Immature Granulocytes % 0.5 %; Immature Granulocytes Absolute 0.08 #; Lymphocytes # 1.3 10*3/uL (1.4-4.0); Lymphocytes % 8.4 % (21.3-54.2); Mean Corpuscular HGB Conc 31.4 GM/DL (32-36); Mean Corpuscular Hemoglobin 30 PG (27-34); Mean Corpuscular Volume 96.7 FL (87-102); Mean Platelet Volume 11.1 FL (9.6-12.0); Monocytes # 0.7 10*3/uL (0.11-0.8); Monocytes % 4.9 % (1.7-12.7); Neutrophils # 12.9 10*3/uL (1.4-7.4); Neutrophils % 85.4 % (38.7-73.9); Platelet Count 164 T/CUMM (130-400); Red Blood Count 3.59 MC/CUMM (3.8-5.5); Red Cell Distribution Width 17.2 % (9.3-17.3); White Blood Count 15.1 T/CUMM (4-12)
[2017-11-29 12:02] LABS: Calcium 7.8 MG/DL (8.5-10.1); Osmolality,Calculated 296.6 MOS/KG (273-304); Potassium 4.4 MMOL/L (3.5-5.1)
[2017-11-29] MEDS: traMADol 50 MG TABLET PO PRN (14:25)
[2017-11-29] MEDS: ALPRAZolam 0.25 MG TABLET PO PRN (16:07)
[2017-11-29 18:58] LABS: Calcium 7.6 MG/DL (8.5-10.1); Osmolality,Calculated 300.4 MOS/KG (273-304); Potassium 4.4 MMOL/L (3.5-5.1)
[2017-11-29] MEDS: SERTRALINE 100 MG TABLET PO SCH (21:37)
[2017-11-30] MEDS: ALPRAZolam 0.25 MG TABLET PO PRN ×3 (00:19→23:34)
[2017-11-30] MEDS: LACTULOSE 20 GM/30 ML UDCUP PO SCH ×4 (03:52→21:24)
[2017-11-30 08:19] LABS: Basophils # 0.1 10*3/uL (0.0-0.2); Basophils % 0.4 % (0.0-0.8); Eosinophils # 0.2 10*3/uL (0.0-0.87); Eosinophils % 1.3 % (0.00-10.9); Immature Granulocytes % 0.5 %; Immature Granulocytes Absolute 0.06 #; Lymphocytes # 1.2 10*3/uL (1.4-4.0); Lymphocytes % 9.5 % (21.3-54.2); Mean Corpuscular HGB Conc 31.4 GM/DL (32-36); Mean Corpuscular Hemoglobin 31 PG (27-34); Mean Corpuscular Volume 97.2 FL (87-102); Mean Platelet Volume 11.4 FL (9.6-12.0); Monocytes # 0.6 10*3/uL (0.11-0.8); Neutrophils # 10.3 10*3/uL (1.4-7.4); Neutrophils % 83.3 % (38.7-73.9); Platelet Count 145 T/CUMM (130-400); Red Cell Distribution Width 17.2 % (9.3-17.3); White Blood Count 12.3 T/CUMM (4-12)
[2017-11-30 08:48] LABS: Albumin 1.6 G/DL (3.4-5.0); Bilirubin,Direct 0.31 MG/DL (0.0-0.20); Bilirubin,Indirect 0.4 MG/DL (0.0-1.0); Bilirubin,Total 0.7 MG/DL (0.2-1.0); Calcium 7.6 MG/DL (8.5-10.1); Osmolality,Calculated 296.6 MOS/KG (273-304); Potassium 4.1 MMOL/L (3.5-5.1)
[2017-11-30] MEDS: FUROSEMIDE 20 MG TABLET PO SCH (09:53)
[2017-11-30] MEDS: SPIRONOLACTONE 50 MG TABLET PO SCH (09:53)
[2017-11-30] MEDS: LEVOFLOXACIN 250 MG TABLET PO SCH (09:53)
[2017-11-30] MEDS: DOCUSATE SODIUM 100 MG CAPSULE PO SCH ×2 (09:53→21:25)
[2017-11-30] MEDS: ZINC OXIDE PASTE 113 GM TUBE TOP SCH ×2 (09:53→21:25)
[2017-11-30] MEDS: LOSARTAN 50 MG TABLET PO SCH (09:53)
[2017-11-30] MEDS: PANTOPRAZOLE 40 MG TABLET PO SCH (09:53)
[2017-11-30] MEDS: ACETAMINOPHEN 325 MG TABLET PO PRN ×2 (10:01→18:25)
[2017-11-30] MEDS: SERTRALINE 100 MG TABLET PO SCH (21:25)
[2017-11-30] MEDS: traMADol 50 MG TABLET PO PRN (23:36)
[2017-12-01] MEDS: LACTULOSE 20 GM/30 ML UDCUP PO SCH ×5 (02:04→23:01)
[2017-12-01] MEDS: FUROSEMIDE 20 MG TABLET PO SCH (09:38)
[2017-12-01] MEDS: DOCUSATE SODIUM 100 MG CAPSULE PO SCH ×2 (09:38→23:02)
[2017-12-01] MEDS: SPIRONOLACTONE 50 MG TABLET PO SCH (09:39)
[2017-12-01] MEDS: LOSARTAN 50 MG TABLET PO SCH (09:39)
[2017-12-01] MEDS: ZINC OXIDE PASTE 113 GM TUBE TOP SCH ×2 (09:39→23:02)
[2017-12-01] MEDS: PANTOPRAZOLE 40 MG TABLET PO SCH (09:39)
[2017-12-01] MEDS: LEVOFLOXACIN 250 MG TABLET PO SCH (10:51)
[2017-12-01] MEDS ORDERED: SODIUM CHLORIDE 0.45% 500 ML IV ONE (15:00)
[2017-12-01] MEDS: traMADol 50 MG TABLET PO PRN (23:01)
[2017-12-01] MEDS: SERTRALINE 100 MG TABLET PO SCH (23:01)
[2017-12-01] MEDS: ALPRAZolam 0.25 MG TABLET PO PRN (23:24)
[2017-12-02] MEDS: LACTULOSE 20 GM/30 ML UDCUP PO SCH ×4 (01:52→23:16)
[2017-12-02 07:39] LABS: Basophils # 0.1 10*3/uL (0.0-0.2); Basophils % 0.3 % (0.0-0.8); Eosinophils # 0.1 10*3/uL (0.0-0.87); Eosinophils % 0.5 % (0.00-10.9); Hematocrit 32.5 VOL% (35.7-47.0); Hemoglobin 10.8 GM/DL (12.0-16.0); Immature Granulocytes % 0.7 %; Lymphocytes # 1.2 10*3/uL (1.4-4.0); Lymphocytes % 7.8 % (21.3-54.2); Mean Corpuscular HGB Conc 33.2 GM/DL (32-36); Mean Corpuscular Hemoglobin 31 PG (27-34); Mean Corpuscular Volume 91.8 FL (87-102); Mean Platelet Volume 11.8 FL (9.6-12.0); Monocytes # 0.6 10*3/uL (0.11-0.8); Monocytes % 4.1 % (1.7-12.7); Neutrophils % 86.6 % (38.7-73.9); Platelet Count 154 T/CUMM (130-400); Red Blood Count 3.54 MC/CUMM (3.8-5.5); Red Cell Distribution Width 17.2 % (9.3-17.3); White Blood Count 15.1 T/CUMM (4-12)
[2017-12-02 08:04] LABS: Calcium 7.5 MG/DL (8.5-10.1); Potassium 4.6 MMOL/L (3.5-5.1)
[2017-12-02] MEDS: PANTOPRAZOLE 40 MG TABLET PO SCH (10:24)
[2017-12-02] MEDS: LOSARTAN 50 MG TABLET PO SCH (10:24)
[2017-12-02] MEDS: LEVOFLOXACIN 250 MG TABLET PO SCH (10:25)
[2017-12-02] MEDS: DOCUSATE SODIUM 100 MG CAPSULE PO SCH ×2 (10:25→23:16)
[2017-12-02] MEDS: ZINC OXIDE PASTE 113 GM TUBE TOP SCH ×2 (10:28→23:17)
[2017-12-02] MEDS: ACETAMINOPHEN 325 MG TABLET PO PRN (11:38)
[2017-12-02] MEDS: ALPRAZolam 0.25 MG TABLET PO PRN (15:56)
[2017-12-02] MEDS: traMADol 50 MG TABLET PO PRN (18:33)
[2017-12-02] MEDS: RIFAXIMIN 550 MG TABLET PO SCH (23:16)
[2017-12-02] MEDS: SERTRALINE 100 MG TABLET PO SCH (23:16)
[2017-12-03] MEDS: traMADol 50 MG TABLET PO PRN (03:38)
[2017-12-03] MEDS: LACTULOSE 20 GM/30 ML UDCUP PO SCH ×2 (03:39→09:55)
[2017-12-03 08:54] LABS: Basophils # 0.1 10*3/uL (0.0-0.2); Basophils % 0.3 % (0.0-0.8); Eosinophils # 0.1 10*3/uL (0.0-0.87); Eosinophils % 0.7 % (0.00-10.9); Hematocrit 35.1 VOL% (35.7-47.0); Hemoglobin 11.5 GM/DL (12.0-16.0); Immature Granulocytes % 0.6 %; Immature Granulocytes Absolute 0.11 #; Lymphocytes # 1.5 10*3/uL (1.4-4.0); Lymphocytes % 8.1 % (21.3-54.2); Mean Corpuscular HGB Conc 32.8 GM/DL (32-36); Mean Corpuscular Hemoglobin 31 PG (27-34); Mean Corpuscular Volume 93.4 FL (87-102); Mean Platelet Volume 11.3 FL (9.6-12.0); Monocytes # 0.8 10*3/uL (0.11-0.8); Monocytes % 4.1 % (1.7-12.7); Neutrophils # 16.5 10*3/uL (1.4-7.4); Neutrophils % 86.2 % (38.7-73.9); Platelet Count 162 T/CUMM (130-400); Red Blood Count 3.76 MC/CUMM (3.8-5.5); Red Cell Distribution Width 17.5 % (9.3-17.3); White Blood Count 19.1 T/CUMM (4-12)
[2017-12-03 09:26] LABS: Albumin 1.7 G/DL (3.4-5.0); Calcium 7.3 MG/DL (8.5-10.1); Potassium 4.5 MMOL/L (3.5-5.1); Total Protein 5.2 G/DL (6.4-8.3)
[2017-12-03] MEDS: DOCUSATE SODIUM 100 MG CAPSULE PO SCH (09:56)
[2017-12-03] MEDS: RIFAXIMIN 550 MG TABLET PO SCH (09:56)
[2017-12-03] MEDS: LEVOFLOXACIN 250 MG TABLET PO SCH (09:56)
[2017-12-03] MEDS: PANTOPRAZOLE 40 MG TABLET PO SCH (09:56)
[2017-12-03] MEDS: FUROSEMIDE 20 MG TABLET PO SCH (09:56)
[2017-12-03] MEDS: ZINC OXIDE PASTE 113 GM TUBE TOP SCH (10:04)
[2017-12-03] MEDS: ACETAMINOPHEN 325 MG TABLET PO PRN (10:07)
[2017-12-03] MEDS: LOSARTAN 50 MG TABLET PO SCH (10:08)
[2017-12-03] MEDS: SPIRONOLACTONE 50 MG TABLET PO SCH (10:08)
[2017-12-03] MEDS: ALPRAZolam 0.25 MG TABLET PO PRN (12:26)
[2017-12-03 13:00] VITALS: BP 104/69
== END 2017-12-03 14:20 | disposition hospice, home (50) | DRG 432 ==
LOC: EDUNIT# → EDBD → N.ED 10:58 → N.EDINP 13:51 → N.5E 16:43
PROVIDERS: ADMIT Internal Medicine; ATTEND Internal Medicine